=== PATIENT | female | born 1960 | race Caucasian/White ===

== ENCOUNTER → 2016-08-21 | Day surgery (SDC) | payer BC ==
[~2016-08-21] VITALS: Ht 149.9 cm; Wt 79.4 kg
== END | disposition home or self-care (01) ==
LOC: SDCH 06:47
DX: Z12.11 Encounter for screening for malignant neoplasm of colon (principal); D12.5 Benign neoplasm of sigmoid colon; K57.30 Diverticulosis of large intestine without perforation or abscess without bleeding; R10.32 Left lower quadrant pain; M79.7 Fibromyalgia; F41.9 Anxiety disorder, unspecified; F32.9 Major depressive disorder, single episode, unspecified; Z85.9 Personal history of malignant neoplasm, unspecified; E66.3 Overweight
CPT/HCPCS: J2704